=== PATIENT | male | born 1995 | race Caucasian/White ===

== ENCOUNTER 2017-07-11 03:37 | Emergency (ER) | payer SELFPAY ==
[~2017-07-11] VITALS: Ht 167.6 cm; Wt 64.0 kg
[2017-07-11] MEDS ORDERED: IBUPROFEN 800MG TABLET PO ONE (06:45)
[2017-07-11 07:06] VITALS: BP 120/81
== END 2017-07-11 08:00 | disposition home or self-care (01) ==
LOC: ER 07:38
DX: S60.031A Contusion of right middle finger without damage to nail, initial encounter (principal); W22.8XXA Striking against or struck by other objects, initial encounter; Y93.89 Activity, other specified; Y92.89 Other specified places as the place of occurrence of the external cause; Y99.8 Other external cause status
CPT/HCPCS: 73140; 99284; X7700